=== PATIENT | female | born 1985 | race Caucasian/White ===

== ENCOUNTER → 2018-02-13 11:06 | Outpatient (CLI) | payer OTHER, SELFPAY ==
[2018-02-13 17:09] LABS: Chlamydia Trachomatis by PCR Negative (Negative); Neisserai gonorrhoeae by PCR Negative (Negative); Probe Check PASS; Sample Adequacy Control PASS; Specimen Processing Control PASS
[2018-02-16 13:47] LABS: HPV Reflexed? NOT INDICATED
== END ==
PROVIDERS: Visit Provider Obstetrics & Gynecology
DX: Z12.4 Encounter for screening for malignant neoplasm of cervix (principal); Z11.3 Encounter for screening for infections with a predominantly sexual mode of transmission
CPT/HCPCS: 87491; 87591; 88175; G0145

== ENCOUNTER 2018-03-13 10:40 | Inpatient (IN) | payer SELFPAY, OTHER ==
--- NOTE | 2018-03-13 11:30 | PLAC_PTH ---
PATIENT: GELY BRITO LOC: [facility] U#:[id number] AGE/SX: 33/F ROOM: WP021 RE03/13/[address]: Dr. Gunjan Chambers MD : 1985 BED: 1 DIS: 03/14/2018 SPEC #: [id number] RECD: 03/14/18 02:19 STATUS: BETO KIRTI #: [id number] EDDIE: 03/13/18 11:[address]: Gunjan Chambers DEPT: SURGICAL PATHOLOGY RECD BY: Jimmy Wilson ENTERED: 03/14/18 11:20 SP TYPE: PLACENTA OTHR DR: Dr. Adolfo Aj MD Tissues: Placenta, NOS Procedures: Surgery Specimen Level IV HEADER OPERATION: Vaginal delivery PRE-OP DIAGNOSIS: demise TISSUE SUBMITTED: Retained placenta MICROSCOPIC DIAGNOSIS Retained placenta, removal: Portions of umbilical cord with no significant pathologic change. Portions of placental membranes with acute inflammation. Fragmented placental disc with immature villi, increased intraparenchymal fibrin plaques, mild chronic deciduitis. AM:kristen 03/15/18 MICROSCOPIC DESCRIPTION Slides are reviewed. GROSS DESCRIPTION Received in fixative is one container labeled with the patient's name and designated retained placenta. The specimen consists of multiple pieces of fragmented placenta including blood clot weighing 95.4 gm and measuring in aggregate 10 x 8 x 3 cm. A few pieces of membrane are also noted. A segment of umbilical cord is also noted measuring 15 cm in length and 0.2 cm in diameter. tissue is not identified. The membranes are walters, mucoidy. Sections of the placenta pieces do not reveal any mass lesion. No tissue is identified. Manager Building sections are submitted in four cassettes as follows: 1 - membranes and umbilical cord, 2-4 - placental pieces. / SJ:kristen 03/14/18 TC:2 CPT: 28151
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
[2018-03-13] MEDS: 0.9% Saline Lock 10 ML Syringe IV ×4 (11:55→22:00)
[2018-03-13] MEDS: miSOPROStol 200 MCG Tablet 400 MCG VAGINAL ×4 (12:15→21:15)
[2018-03-13 12:19] LABS: Hematocrit 39.3 % (37-47); Hemoglobin 13.1 g/dl (12.0-15.0); Mean Corp Hgb Conc 33.3 g/gl (32-36); Mean Corpuscular Hgb 29.4 pg (27.0-32.0); Mean Corpuscular Volume 88.3 fL (81-99); Mean Platelet Vol. 10.1 fl (6.2-12.0); Platelet Count 285 K/mm3 (150-450); RBC Distribution Width CV 13.3 % (11.6-14.6); RBC Distribution Width SD 42.2 fl (35.1-43.9); Red Blood Count 4.45 M/mm3 (4.2-5.4); Scan Indicated on CBC? Y/N NO; White Blood Count 11.3 K/mm3 (4.4-11.0)
[2018-03-13 12:27] VITALS: BMI 31.4
--- NOTE | 2018-03-13 12:37 | PCM.PN.BLA ---
Progress Note Induction Cytotec 15 wk IUFD Sitting up in bed, eating pizza. AVSS CX; closed firm Cytotec FIRST dose 400 mcg placed PV x one. at approx 1220 A/P: 15 1/2 wk induction of IUFD. Reviewed course and anticipated delivery with pt and spouse in offc. OK for Nitrous, Nubain, Epidural if elected. Will place cytotec 400 mcg PV q 4 hrs until labor, delivery. OK for regular diet for now. [employer] food when painful.
[2018-03-13] MEDS: Nalbuphine 10 MG/ML Ampul IV ×2 (18:08→21:00)
--- NOTE | 2018-03-13 18:22 | PCM.PN.BLA ---
Progress Note Induction 15 3/7 wk IUFD More uncomfortable and given Nubain IV THIRD dose of Cytotec 400 mcg PV just placed by RN CX 1-2/ . more well developed lower uterine segment. A/P: 15 3/7 wk CRL at 18+ wk by LMP IUFD A positive. Continue Cytotec induction. Anticipate vaginal delivery
--- NOTE | 2018-03-13 21:16 | PCM.PN.BLA ---
Progress Note 15 3/7 wk IUFD induction. Cytotec Feeling very crampy and Nubain given Has not been up to void recently. Bladder full Cytotect 400 mcg Fourth dose administered cx approx 3 cm with part palpable at external os. Effacement not judged due to part at os. A/P; 15 1/2 wk induction Cytotec. Anticipate completion of delivery soon. Continue care. Given late hour of delivery, likely overnight stay with home 03/14/18
--- NOTE | 2018-03-13 22:06 | PCM.OB.VAG ---
Vaginal Delivery Maternal Presentation: Medically Indicated Induction 15 3/7 wk IUFD Method of Induction: Cytotec Medical Reason for Induction: demise Amniotic Membrane Rupture Type: Spontaneous Date of Procedure: 03/13/18 Pre-Operative Diagnosis: 15 3/7 wk EGA IUFD Post-Operative Diagnosis: Same Surgery/ Procedure Performed: Spontaneous Vaginal Delivery Type of Anesthesia: None Description of Procedure: Cytotec four doses given. Pt up to bathroom and gush of fluid noted with fetus then in vagina. Spont delivery, breech presentation Webb macerated, edematous appearing male fetus with no signs of life Cord cut and placenta remains in place Baby wrapped in blanket and given to patient to hold. Father present, supportive Minimal bleeding Reassess for delivery of placenta in 20-30 mins. 15 3/7 wk vaginal delivery, demise Cord Entanglement: None Estimated Blood Loss: 200 cc A gender: Male (1 minute): 0 (5 minute): 0 Episiotomy Description: None Laceration: None
--- NOTE | 2018-03-13 23:00 | PCM.PN.BLA ---
Progress Note ADDENDUM TO DELIVERY NOTE: Retained placenta noted. Cervix closed on exam. Minimal to mod bleeding noted. Advised of options: may continue Cytotec overnight and expectant management of placenta, or may consider D and C for retained placeta (still in place approx 1 hr after delivery) Pt and spouse in agreement for D and C under IV sedation.
[2018-03-13] MEDS: Lactated Ringers 1,000 ML 50 ML IV (23:05)
[2018-03-13] MEDS: Oxytocin 30 units/NS 500 ml 30 UNITS/500 ML IV.SOLN 334 UNITS IV (23:47)
[2018-03-14] MEDS: Oxytocin 30 units/NS 500 ml 30 UNITS/500 ML IV.SOLN 167 UNITS IV (00:40)
[2018-03-14] MEDS: 0.9% Saline Lock 10 ML Syringe IV (01:40)
[2018-03-14 02:45] LABS: Pathology Specimen OB SEE PATHOLOGY REPORT
--- NOTE | 2018-03-14 03:44 | NURSING ---
weight 48 grams, 1.6 oz; 6 1/8 cm long @ 0100 03/14/18
[2018-03-14 05:25] VITALS: BP 94/58; PULSE 56; RESP 18; TEMP 36.4
--- NOTE | 2018-03-14 07:24 | PCM.OP.BLANK ---
Operative Report Date of Procedure: 03/14/18 Pre-Operative Diagnosis: Retained placenta 15 3/7 wk EGA demise, cytotec induction Post-Operative Diagnosis: Retained placenta 15 3/7 wk EGA demise, Cytotec induction Surgery/Procedure Performed: Suction D and C Exam under anesthesia Manual removal of placenta Anesthesia: MAC IV sedation, Dr Vu. Estimated Blood Loss (mL): Minimal, 100 cc since delivery of fetus Complications: none. Drains: None. Fluids Replaced: LR Findings: Uterus sounds to 12-14 cm Parous appearing cervix, with placental tissue extruding through cervix. No cervical lesions noted. Immature Placenta noted and removed PATH: Retained placenta Narrative Account: After the risks, benefits, alteratives of the procedure were reviewed with the patient informed consent was obtained. The patient was taken to the OR with IV running and placed in dorsal supine position on the operating table. She was given MAC IV sedation, and then repositioned to the dorsal lithotomy position and was prepped and draped in the usual sterile fashion. A Graves speculum was placed, the cervix identified and the anterior lip grasped with a single toothed tenaculum. The cervix was dilated and easily allowed admission of an 10 mm curved suction curette tip. Using a polyp forceps the retained placenta was grasped and teased out through the cervix in segments. A sharp curettage was then performed. The suction curette was then placed to the uterine fundus, suction applied, and POC were obtained. A sharp curettage was then performed and good Crei was noted in all quadrants of the uterus. One final pass was conducted with the suction curette and the remaining products of conception and uterine curettings were removed. A sponge stick was then used to remove any remaining tissue and blood from the upper vagina and cervix . All instruments were then removed from the vagina and cervix. Excellent hemostasis was noted. The patient was awakened from IV sedation, and then transferred to her hospital bed in stable condition after tolerating the procedure well. Sponge and instrument counts were correct x two. Medications given intraoperatively included: IV Pitocin, and Toradol 30 mg IV x one. For a complete listing of medications given intraoperatively, please see the anesthesia record.
[2018-03-14 08:20] VITALS: BP 108/71; PULSE 63; RESP 16; TEMP 36.5
--- NOTE | 2018-03-14 08:20 | PCM.PN.OB ---
Subjective: PPD#1 Cytotec induction 15 3/7 wk IUFD POD#0 from D and C for retained placenta. Doing OK. Minimal to no cramping/pain. No real pain since the D and C. Minimal bleeding. Many questions but trying to process all. H/o three uncomplicated pregnancies. No FH of SABs. Normal Thyroid testing with PCP. - Physical Exam General: Alert, Oriented x3, Cooperative, No apparent distress HEENT: Atraumatic Neck: Supple Neurological: Cranial nerves II-XII grossly intact Psych/Mental Status: Appropriate, Flat Affect Vital Signs Temp Pulse Resp BP 97.5 F L 56 L 18 94/58 L 03/14/18 05:25 03/14/18 05:25 03/14/18 05:25 03/14/18 05:25 Oxygen Delivery Method Room Air Weight: 75.3 kg Body Mass Index (BMI) 31.4 Laboratory Tests Past 24 Hrs 03/13/18 03/13/18 11:55 11:55 WBC 11.3 H RBC 4.45 Hgb 13.1 Hct 39.3 MCV 88.3 MCH 29.4 MCHC 33.3 RDW 13.3 RDW Differential 42.2 Plt Count 285 MPV 10.1 Blood Type A POSITIVE Antibody Screen NEGATIVE Medical Necessity - Tobacco Use Smoking Status: Never smoker Assessment/Plan 15 3/7 wk IUFD Cytotec induction to vaginal delivery, then D and C for retained placenta. Reviewed hospital course. Discussed testing but nothiing in hx to suggest specific testing needed. Chromosome testing but expensive and may or may not be successful due to time since demise (apprx 3 wk) to diagnosis. Home today. RTO in 2-4 wk for further discussion re the SAB. Reviewed support options available.
--- NOTE | 2018-03-14 08:25 | PCM.DCVAG ---
Discharge Diet: No Restrictions Discharge Activity: May Shower, May Take a Tub Bath May resume sexual activity in: 4 weeks Additional Activity Instructions:: Nothing in the vagina for 4 weeks. You may return to work/school in 2-4 weeks. Additional Instructions: If you experience any of the following, contact your healthcare provider. Bleeding that soaks a pad every hour for 2 hours Fever 100.4 or higher Unrelieved abdominal pain Problems urinating (including inability to urinate or burning while urinating). Visual changes Severe headache Flu-like symptoms Pain or redness in one of both of your breasts Pain, warmth, tenderness or swelling in your legs, especially the calf area Frequent nausea and vomiting Symptoms of depression or anxiety If you experience any of the following, call 911 or go to the nearest Emergency Room. Chest pain Problems breathing Seizure activity Partial or complete paralysis of a body part, slurred speech, weakness or drooping of the face, or a sudden inability to walk or hold your balance Allergies/Adverse Reactions: Allergies No Known Allergies Allergy (Unverified 03/13/18 12:29) Medications to take at Discharge [place]-3 Fatty Acids/Fish Oil [Fish Oil 1,000 mg Capsule] 1 tab PO DAILY 03/13/18 Please Follow Up With: Gunjan Chambers MD - [phone] When: Call to make an appointment with your doctor in 2-4 weeks. Primary Care Physician: Adolfo Aj MD [Primary Care Provider] - Test Results: Test results from this visit will be discussed in further detail at your follow-up appointment, if applicable. Proposed Discharge Date: 03/14/18
--- NOTE | 2018-03-14 08:26 | DCINST_ITS ---
Discharge Diet: No Restrictions Discharge Activity: May Shower, May Take a Tub Bath May resume sexual activity in: 4 weeks Additional Activity Instructions:: Nothing in the vagina for 4 weeks. You may return to work/school in 2-4 weeks. Additional Instructions: If you experience any of the following, contact your healthcare provider. * Bleeding that soaks a pad every hour for 2 hours * Fever 100.4 or higher * Unrelieved abdominal pain * Problems urinating (including inability to urinate or burning while urinating). * Visual changes * Severe headache * Flu-like symptoms * Pain or redness in one of both of your breasts * Pain, warmth, tenderness or swelling in your legs, especially the calf area * Frequent nausea and vomiting * Symptoms of depression or anxiety If you experience any of the following, call 911 or go to the nearest Emergency Room. * Chest pain * Problems breathing * Seizure activity * Partial or complete paralysis of a body part, slurred speech, weakness or drooping of the face, or a sudden inability to walk or hold your balance Allergies/Adverse Reactions: Allergies No Known Allergies Allergy (Unverified 03/13/18 12:29) Medications to take at Discharge [place]-3 Fatty Acids/Fish Oil [Fish Oil 1,000 mg Capsule] 1 tab PO DAILY 03/13/18 Please Follow Up With: Gunjan Chambers MD - [phone] When: Call to make an appointment with your doctor in 2-4 weeks. Primary Care Physician: Adolfo Aj MD [Primary Care Provider] - Test Results: Test results from this visit will be discussed in further detail at your follow- up appointment, if applicable. Proposed Discharge Date: 03/14/18
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
[2018-03-14 08:44] VITALS: BP 108/71; PULSE 63; RESP 16; TEMP 36.5
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
== END 2018-03-14 08:50 | disposition home or self-care (01) | DRG 806 ==
PROVIDERS: Admitting Provider Obstetrics & Gynecology; Family Provider Family Medicine; PCP Family Medicine; Referring Provider Obstetrics & Gynecology; Visit Provider Obstetrics & Gynecology
DX: O36.4XX0 Maternal care for intrauterine death, not applicable or unspecified (principal); O72.0 Third-stage hemorrhage; Z37.1 Single stillbirth; Z3A.15 15 weeks gestation of pregnancy; O32.1XX0 Maternal care for breech presentation, not applicable or unspecified
CPT/HCPCS: 85027; 86850; 86900; 88305; 88307; 99218; J7120; A4216; G0378

== ENCOUNTER → 2022-03-08 | Outpatient (CLI) | payer OTHER, SELFPAY ==
[2022-03-08 12:33] LABS: Estradiol 270.7 pg/mL; Ferritin 17 ng/mL (8-252); Free T3 2.7 pg/mL (2.18-3.98); Prolactin 6.1 ng/mL; T4 Free Direct 0.83 ng/dL (0.76-1.46); Thyroid Stim Hormone (TSH) 0.78 uIU/mL (0.358-3.74)
[2022-03-08 12:37] LABS: Vitamin B12 503 pg/mL (211-911)
[2022-03-16 14:09] LABS: Testosterone, % Free 2.52 % (0.50-2.80); Testosterone, Free 0.58 ng/dL (0.10-0.85); Testosterone, Total 23 ng/dL (8-60); Thyroid Peroxidase AB < 9 IU/mL (0-34)
[2022-03-17 10:33] LABS: Thyroglobulin Antibody < 1.0 IU/mL (0.0-0.9)
[2022-03-17 20:52] LABS: 17-Hydroxyprogesterone 38 ng/dL (.)
== END | disposition home or self-care (01) ==
LOC: WOBLAB 10:27
PROVIDERS: PCP Family Medicine; Visit Provider Student in an Organized Health Care Education/Training Program
DX: L65.8 Other specified nonscarring hair loss (principal)
CPT/HCPCS: 36415; 82607; 82627; 82670; 82728; 82746; 83498; 84146; 84402; 84403; 84439; 84443; 84481; 86376; 86800; 82626